=== PATIENT | male | born 1945 | race Caucasian/White ===

== ENCOUNTER 2017-05-08 08:59 | Day surgery (SDC) | payer MEDICARE ==
[~2017-05-08] VITALS: Ht 172.7 cm; Wt 68.2 kg
[~2017-05-08 08:59] MED LIST: ASPI-621 PO; NIAC250T7 PO; NITR0.4T8 SL; PRAS10TA4 PO; SIMV20TA PO
[2017-05-08 09:28] VITALS: BP 119/74
[2017-05-08] MEDS ORDERED: NIAC500T9 PO (09:46)
[2017-05-08] MEDS ORDERED: SIMV20TA3 PO (09:46)
[2017-05-08] MEDS ORDERED: PRAS10TA4 PO (09:46)
[2017-05-08] MEDS ORDERED: NITR0.4T8 SL (09:46)
[2017-05-08] MEDS ORDERED: ASPI-621 PO (09:46)
[2017-05-08] MEDS ORDERED: MIDAZOLAM 1 MG/ML, 5ML ONE (09:52)
[2017-05-08] MEDS ORDERED: BIVALIRUDIN 250 MG ONE (09:53)
[2017-05-08] MEDS ORDERED: NITROGLYCERIN 5 MG/ML, 10ML ONE (09:53)
[2017-05-08] MEDS ORDERED: FENTANYL PF 100 MCG/2ML ONE (09:53)
[2017-05-08] MEDS ORDERED: LIDOCAINE 2%, 20ML ONE (09:53)
[2017-05-08] MEDS ORDERED: VERAPAMIL 2.5 MG/ML, 2ML ONE (09:53)
[2017-05-08] MEDS ORDERED: HEPARIN 1,000 UNITS/ML, 10ML ONE (09:53)
== END 2017-05-08 14:30 ==
LOC: CACL 08:59
PROVIDERS: ATTEND Internal Medicine Cardiovascular Disease
DX: I25.110 Atherosclerotic heart disease of native coronary artery with unstable angina pectoris (principal)
CPT/HCPCS: 93458; 93571; 93572; 99156; 99157; C1760; C1769; C1887; C1894; J1644; J2250; J3010; J3490; Q9967; J0583